=== PATIENT | female | born 1980 | race Caucasian/White ===

== ENCOUNTER → 2020-05-24 11:14 | Outpatient (BNVA) | payer OTHER, SELFPAY | PROVIDERS: Family Provider Family Medicine; PCP Family Medicine; Visit Provider Nurse Practitioner | DX: F41.1 Generalized anxiety disorder (principal); Z79.899 Other long term (current) drug therapy | CPT/HCPCS: 80061; 83036 ==

== ENCOUNTER → 2020-12-20 13:10 | Outpatient (BNVA) | payer OTHER, SELFPAY ==
[2020-05-29 10:14] VITALS: BP 128/86; BMI 20.1
== END ==
PROVIDERS: Family Provider Family Medicine; PCP Family Medicine; Visit Provider Nurse Practitioner
DX: F41.1 Generalized anxiety disorder (principal); Z79.899 Other long term (current) drug therapy
CPT/HCPCS: 80061; 83036

== ENCOUNTER → 2022-01-02 11:46 | Outpatient (BNVA) | payer OTHER, SELFPAY ==
[2020-12-21 13:28] VITALS: BP 129/91; BMI 19.4
== END ==
PROVIDERS: Family Provider Family Medicine; PCP Family Medicine; Visit Provider Nurse Practitioner
DX: F41.1 Generalized anxiety disorder (principal); Z79.899 Other long term (current) drug therapy
CPT/HCPCS: 80061; 83036

== ENCOUNTER → 2022-12-11 11:42 | Outpatient (BNVA) | payer OTHER, SELFPAY ==
[2022-01-17 13:33] VITALS: BP 144/93
== END ==
PROVIDERS: Family Provider Family Medicine; PCP Family Medicine; Visit Provider Nurse Practitioner
DX: F90.0 Attention-deficit hyperactivity disorder, predominantly inattentive type (principal); F34.1 Dysthymic disorder; F41.1 Generalized anxiety disorder; Z79.899 Other long term (current) drug therapy
CPT/HCPCS: 80061; 83036

== ENCOUNTER 2023-07-23 14:31 | Outpatient (CLI) | payer SELFPAY ==
[2022-01-17 13:33] VITALS: BP 144/93
--- NOTE | 2023-07-23 14:41 | USCV_ITS ---
Shayna Brower Age: 42 Gender: F : 1980 Exam Date: 07/23/2023 14:52 Ordering Phys: Alberta Dhillon Technologist: RENAE [place]am [place] [facility] [place]: RLE PAIN, SWELLING, AND DISCOLORATION HISTORY: Lower extremity swelling. Lower extremity pain. PROCEDURES: Venous duplex imaging was performed in only the right lower extremity. The following venous structures were evaluated: common femoral vein, profunda vein, proximal portion of the greater saphenous vein, superficial femoral vein, and the popliteal vein. In addition, the posterior tibial and peroneal trunk were evaluated. Serial compression, augmentation maneuvers, and spectral Doppler flow evaluation were performed. FINDINGS: No evidence of DVT seen in any vessel visualized at this time. In Area of interest non-compressible varicose veins seen. Right GSV appears patent CONCLUSIONS No evidence of right lower extremity DVT. In area of interest, non compressible varicose veins visualized with superficial thrombus. Recommend correlation for thrombophlebitis Right GSV is patent Jacky Caban MD (Electronically Signed) Final Date: 23 July 2023 16:13 S
== END 2023-07-23 14:32 | disposition home or self-care (01) ==
LOC: RAD 14:31
PROVIDERS: Family Provider Family Medicine; PCP Family Medicine; Visit Provider Nurse Practitioner Family
DX: L53.9 Erythematous condition, unspecified (principal); R60.0 Localized edema; I83.91 Asymptomatic varicose veins of right lower extremity; I80.01 Phlebitis and thrombophlebitis of superficial vessels of right lower extremity
CPT/HCPCS: 93971

== ENCOUNTER → 2023-12-09 10:26 | Outpatient (BNVA) | payer OTHER, SELFPAY ==
[2022-01-17 13:33] VITALS: BP 144/93
== END ==
PROVIDERS: Family Provider Family Medicine; PCP Family Medicine; Visit Provider Nurse Practitioner
DX: Z79.899 Other long term (current) drug therapy (principal); F90.0 Attention-deficit hyperactivity disorder, predominantly inattentive type; F41.1 Generalized anxiety disorder; F34.1 Dysthymic disorder
CPT/HCPCS: 80061; 83036

== ENCOUNTER 2024-02-19 09:59 | Outpatient (CLI) | payer OTHER, SELFPAY ==
[2022-01-17 13:33] VITALS: BP 144/93
--- NOTE | 2024-02-19 10:13 | US_ITS ---
WS: [id number] US pelv w/transvag [id number] HISTORY: UTERINE MASS COMPARISON: 05/18/2008 Uterus: 12.4 cm x 10.5 cm x 8.0 cm. There is a large heterogeneous mass with dense shadowing centered throughout the uterus. The uterine contour is being distorted. This is consistent with a large fibroid or multiple fibroids replacing th e myometrium. Endometrium: The endometrium is not visualized as a separate structure. Right ovary: 2.2 cm x 1.9 cm x 1.4 cm. Normal size and vascularity, no cystic or solid masses. Left ovary: Not identified. No free fluid in the cul-de-sac. US/US pelv w/transvag [id number] IMPRESSION: 1. Markedly enlarged uterus consistent with a fibroid uterus. Very little norm al peripheral uterine tissue is identified. Recommend [employer] consultation. 2. Endometrium is not identified due to the large central mass. 3. Negative RIGHT ovary. 4. LEFT ovary not identified.
== END 2024-02-19 10:00 | disposition home or self-care (01) ==
LOC: RAD 10:00
PROVIDERS: PCP Family Medicine; Visit Provider Nurse Practitioner Family
DX: N85.8 Other specified noninflammatory disorders of uterus (principal)
CPT/HCPCS: 76830; 76856

== ENCOUNTER → 2024-03-15 13:45 | Outpatient (BNVA) | payer OTHER, SELFPAY ==
[2022-01-17 13:33] VITALS: BP 144/93
== END ==
PROVIDERS: PCP Family Medicine; Visit Provider Nurse Practitioner Family
DX: R39.9 Unspecified symptoms and signs involving the genitourinary system (principal); R30.0 Dysuria
CPT/HCPCS: 81000; 87077; 87086; 87184

== ENCOUNTER → 2024-03-25 10:58 | Outpatient (BNVA) | payer OTHER, SELFPAY ==
[2022-01-17 13:33] VITALS: BP 144/93
== END ==
PROVIDERS: PCP Family Medicine; Visit Provider Registered Nurse Neonatal Intensive Care
DX: R39.9 Unspecified symptoms and signs involving the genitourinary system (principal); N39.0 Urinary tract infection, site not specified
CPT/HCPCS: 81000; 87077; 87086; 87184

== ENCOUNTER 2024-05-19 09:33 | Day surgery (SDC) | payer OTHER, SELFPAY ==
[2022-01-17 13:33] VITALS: BP 144/93
[2024-05-19] VITALS (10 sets, daily range): BP systolic 116–154; BP diastolic 74–97; PULSE 67–96; RESP 12–22; TEMP 36.2–37.2; O2SAT 100; BMI 21.4
--- NOTE | 2024-05-19 04:18 | W.PM.OPSFHP ---
Same Day Surgery H&P Indication for Procedure/HPI DATE OF PROCEDURE: May 19, 2024 CHIEF COMPLAINT/INDICATIONFOR SURGICAL PROCEDURE: abnormal uterine bleeding abnormal pap PREOP DIAGNOSIS: abnormal uterine bleeding, abnormal pap PLANNED PROCEDURE: Operation Date: 05/19/24 11:10 Proposed Procedures p Hysteroscopy Hysteroscopy w/ Endometrial Sampling 30162, 79898,54912,N93.9, r87.619(Not Applicable) - Amilcar Mckeon MD s Poylpectomy(Not Applicable) - Amilcar Mckeon MD s Loop Electrosurgical Excision Procedure cervical excision(Not Applicable) - Amilcar Mckeon MD 43 y.o. with large uterine fibroid and h/o abnormal paps Medications/Allergies* Home Medications Medication Instructions Recorded Confirmed Type hydrochlorothiazide 12.5 mg tablet 12.5 mg PO QAM 10/05/19 05/18/24 History bupropion HCl 150 mg 24 hr tablet, 150 mg PO DAILY 05/18/24 05/18/24 History extended release Allergies/Adverse Reactions Allergy/AdvReac Type Severity Reaction Status Date / Time meperidine [From Demerol] Allergy Unknown Verified 03/25/24 10:55 Pertinent History/Comorbid Conditions* Medical History (Updated 03/20/24 @ 01:37 by Amilcar Mckeon MD) On combination antipsychotic drug therapy Psychiatric care Attention-deficit hyperactivity disorder, predominantly inattentive type Dysthymic disorder Generalized anxiety disorder Family History (Updated 03/01/24 @ 13:07 by Monie Brunson LPN) Diabetes Mother Heart disease Mother Grandmother Denies family history of complication Colon cancer Ovarian cancer Breast cancer Hypertension Uterine cancer Thyroid disease Stroke Social History Smoking and tobacco/nicotine status: never used tobacco/nicotine Pertinent Exam Findings alert, oriented x 3, clear to auscultation bilaterally and regular rate & rhythm Pertinent Data Pelvic sono 02-19-24 uterus 12.4 x 10.5 x 8 cm Large fibroid replacing the myometrium Endometrium not visualized Normal right ovary Left ovary not visualized Recommendations Surgery/Procedure today Coding Level of Care Code Acute Code for Chg Fwd Time Spent (min) 20
[2024-05-19 10:05] LABS: OR HCG Qualitative Urine Negative (Negative)
--- NOTE | 2024-05-19 10:05 | W.PM.OPSUD ---
Surgery/Procedure H&P Update DATE OF PROCEDURE: May 19, 2024 DATE H&P PERFORMED: 05/19/24 H&P UPDATE INFORMATION: I have reviewed H&P completed within last 30 days, I have examined patient prior to procedure and No changes to prior documentation PREOP DIAGNOSIS: abnormal uterine bleeding, uterine fibroid, abnormal pap PLANNED PROCEDURE: Operation Date: 05/19/24 11:10 Proposed Procedures p Hysteroscopy Hysteroscopy w/ Endometrial Sampling 24783, 46811,77046,N93.9, r87.619(Not Applicable) - Amilcar Mckeon MD s Poylpectomy(Not Applicable) - Amilcar Mckeon MD s Loop Electrosurgical Excision Procedure cervical excision(Not Applicable) - Amilcar Mckeon MD
--- NOTE | 2024-05-19 10:26 | ANES.PREANE2 ---
Pre-Anesthetic Assessment Height/Weight: Height 1.63 m Weight 56.699 kg Temp Pulse Resp BP Pulse Ox O2 Del Method 98.9 F 96 16 154/97 100 Room Air 05/19/24 09:53 05/19/24 09:53 05/19/24 09:53 05/19/24 09:53 05/19/24 09:53 05/19/24 09:55 Preop Diagnosis: abnormal uterine bleeding, uterine fibroid, abnormal pap Operation Date: 05/19/24 11:10 Proposed Procedures p Hysteroscopy Hysteroscopy w/ Endometrial Sampling 85520, 77732,60594,N93.9, r87.619(Not Applicable) - Amilcar Mckeon MD s Poylpectomy(Not Applicable) - Amilcar Mckeon MD s Loop Electrosurgical Excision Procedure cervical excision(Not Applicable) - Amilcar Mckeon MD Familial anesthetic complications: None Was Beta Melissa taken within 24 hours: N/A Was Clonidine taken within 24 hours: N/A Last intake: Intake Last Liquid Date 05/19/24 Last Liquid Time 07:00 Last Solid Date 05/18/24 Last Solid Time 21:30 Social No alcohol and No tobacco Exam alert, oriented x 3, clear to auscultation bilaterally and regular rate & rhythm Airway Mallampati: Class I Dentition: full Anesthetic Plan ASA status: 2 Anesthesia: General Risk of > 500 ml blood loss (7ml/kg in children): No Medications/Allergies Home Medications Medication Instructions Recorded Confirmed Last Taken Type hydrochlorothiazide 12.5 mg tablet 12.5 mg PO QAM 10/05/19 05/18/24 05/18/24 History bupropion HCl 300 mg 24 hr tablet, 300 mg PO QAM #30 tabs 03/07/24 05/18/24 05/18/24 Rx extended release (Wellbutrin XL) aripiprazole 5 mg tablet (Abilify) 5 mg PO QDAY #30 tabs 03/15/24 05/18/24 05/18/24 Rx bupropion HCl 150 mg 24 hr tablet, 150 mg PO DAILY 05/18/24 05/18/24 05/18/24 History extended release Allergies Allergy/AdvReac Type Severity Reaction Status Date / Time meperidine [From Demerol] Allergy Unknown Verified 05/19/24 09:52 [facility]LY [facility] Anesthesia Medical History On combination antipsychotic drug therapy Psychiatric care Attention-deficit hyperactivity disorder, predominantly inattentive type Dysthymic disorder Generalized anxiety disorder Family History Mother Heart disease Diabetes Grandmother Heart disease Denies family history of complication Colon cancer Ovarian cancer Breast cancer Hypertension Uterine cancer Thyroid disease Stroke Social History Smoking and tobacco/nicotine status: never used tobacco/nicotine Female Reproductive History Date of last menstrual period: 05/04/24 Data Anesthesia Cardiac Studies: No Data to Display
--- NOTE | 2024-05-19 11:10 | SUR.OPER ---
moncels [id number] exp-10/29/24 applied to cervix by Dr. Mckeon.
--- NOTE | 2024-05-19 12:25 | PM.OP ---
Operative Report Date of procedure: May 19, 2024 Pre-op diagnosis: abnormal uterine bleeding abnormal pap Post-op diagnosis: same Post-op findings: uterus sounded to 8 cm Endometrial cavity normal Minimal endometrial tissue No polyps or fibroids Procedure done: hysteroscopy Curettage of uterus Electrosurgical loop excision of the cervix Implants: none Specimens removed/disposition: endometrial curettings cervical tissue Surgeon: Amilcar Mckeon MD Anesthesia: MAC Estimated blood loss (mL): 5 Complications: none Findings: uterus sounded to 8 cm Endometrial cavity normal Minimal endometrial tissue No polyps or fibroids Condition: stable Disposition: PACU Brief History: 43 y.o. with abnormal uterine bleeding and abnormal pap Procedure: Informed consent signed. Patient was taken to the operating room. Anesthesia was induced. Patient was placed in dorsolithotomy position, prepped and draped for hysteroscopy. A bivalve speculum was placed in the vagina. The anterior lip of the cervix was grasped with a sharp-toothed tenaculum. The cervix was serially dilated with Hegar dilators. A hysteroscope was placed into the endometrial cavity. The endometrial cavity was seen to be normal. There were no polyps or fibroids. There was small amount of endometrial tissue. The hysteroscope was then removed. Endometrial curettage was done with a sharp curette. Endometrial tissue was sent to pathology. The cervix was then infiltrated at the cervicovaginal junction with 20 U of vasopressin to decrease bleeding. Electrosurgical loop excision of the cervix was done to a depth of approximately 5 mm. No bleeding was seen. Excellent hemostasis was noted. All instruments were then removed. The patient was placed supine, awakened, and taken to the recovery room. Postoperative condition: stable EBL: 5 cc Complications: none Sponge and instrument counts were correct x two
--- NOTE | 2024-05-19 12:45 | ANE.PACU2 ---
Inpatient post-anesthesia follow up: Airway intact: Yes Vital signs: Temperature 98.2 F Pulse Rate 77 Respiratory Rate 16 Blood Pressure 138/83 Pulse Oximetry 100 Oxygen Delivery Me thod Room Air Oxygen Flow Rate 6 Fraction of Inspir ed Oxygen Hydration adequate: Yes Nausea and vomiting: No Pain level: 1 Mental status: Baseline
== END 2024-05-19 12:45 | disposition home or self-care (01) ==
PROVIDERS: Anesthesiology; PCP Nurse Practitioner Family; Visit Provider Obstetrics & Gynecology
PROC: 0UJD8ZZ Inspection of Uterus and Cervix, Via Natural or Artificial Opening Endoscopic (ICD-10-PCS; CPT 58555; principal; 2024-05-19 11:00)
PROC: (CPT 57522; 2024-05-19 11:00)
PROC: 0UBC7ZZ Excision of Cervix, Via Natural or Artificial Opening (ICD-10-PCS; CPT 57522; 2024-05-19 11:00)
DX: N87.0 Mild cervical dysplasia (principal); F41.1 Generalized anxiety disorder
CPT/HCPCS: 57522; 58558; 81025; 88305; J1100; J1885; J2250; J2405; J2704; J3010

== ENCOUNTER → 2024-08-09 09:33 | Outpatient (BNVA) | payer OTHER, SELFPAY ==
[2022-01-17 13:33] VITALS: BP 144/93
== END ==
PROVIDERS: PCP Nurse Practitioner Family; Visit Provider Obstetrics & Gynecology
DX: N85.9 Noninflammatory disorder of uterus, unspecified (principal); D25.9 Leiomyoma of uterus, unspecified
CPT/HCPCS: 76830; 76856

== ENCOUNTER 2024-11-24 09:26 | Observation (INO) | payer OTHER, SELFPAY ==
[2022-01-17 13:33] VITALS: BP 144/93
--- NOTE | 2024-11-23 10:43 | P.ANESASSM_ITS ---
Pre-Anesthetic Assessment Height/Weight: Height 1.63 m Preop Diagnosis: uterine fibroids, menorrhagia Operation Date: 11/24/24 07:00 Proposed Procedures p Total Abdominal Hysterectomy 33685, D25.9(Not Applicable) - Amilcar Mckeon MD Familial anesthetic complications: None Was Beta Melissa taken within 24 hours: N/A Was Clonidine taken within 24 hours: N/A Last intake: > 8 hrs Social No alcohol and No tobacco Exam alert, oriented x 3, clear to auscultation bilaterally and regular rate & rhythm Airway Mallampati: Class I Dentition: full CV/HEM Hypertension Anesthetic Plan ASA status: 2 Anesthesia: General Risk of > 500 ml blood loss (7ml/kg in children): No Medications/Allergies Home Medications ?Medication ?Instructions ?Recorded ?Confirmed ?Last Taken ?Type hydrochlorothiazide 12.5 mg tablet 12.5 mg PO BID 09/0811/23/24 11/23/24 History norgestimate 0.18 mg/0.215 mg/0.25 1 tab PO DAILY 04/3011/23/24 11/23/24 History mg-ethinyl estradiol 25 mcg tablet (Tri-VyLibra Lo) bupropion HCl 300 mg 24 hr tablet, 300 mg PO QAM #30 t abs 09/16/24 11/23/24 11/23/24 Rx extended release (Wellbutrin XL) bupropion HCl 150 mg 24 hr tablet, 150 mg PO DAILY #30 tabs 10/17/24 11/23/24 11/23/24 Rx extended release aripiprazole 5 mg tablet (Abilify) 5 mg PO QPM 5 11/23/24 11/22/24 History Allergies Allergy/AdvReac Type Severity Reaction Status Date / Time meperidine (From Demerol) Allergy Unknown Verified 09/14/24 10:53 [facility] Anesthesia Medical History On combination antipsychotic drug therapy Psychiatric care Attention-deficit hyperactivity disorder, predominantly inattentive type Dysthymic disorder Generalized anxiety disorder Family History Mother Heart disease Diabetes Grandmother Heart disease Denies family history of complication Colon cancer Ovarian cancer Breast cancer Hypertension Uterine cancer Thyroid disease Stroke Social History Smoking and tobacco/nicotine status: never used tobacco/nicotine Female Reproductive History Date of last menstrual period: 11/09/24 Data Anesthesia Cardiac Studies: No Data to Display
[2024-11-23 10:46] LABS: Basophils # 0.1 10^3/uL (0.0-0.1); Basophils % 0.7 %; Eosinophils # 0.1 10^3/uL (0.0-0.8); Eosinophils % 0.9 %; Hematocrit 45.7 % (36-47); Lymphocytes # 2.1 10^3/uL (0.8-4.8); Lymphocytes % 28.6 %; Mean Corpuscular HGB Conc 34.6 g/dL (30-55); Mean Corpuscular Hemoglobin 30.3 pg (27-33); Mean Corpuscular Volume 87.5 fl (85-98); Mean Platelet Volume 9.7 fL (7.4-10.4); Monocytes # 0.5 10^3/uL (0.2-0.9); Monocytes % 6.5 %; Neutrophils # 4.68 10^3/uL (1.8-7.7); Nucleated Red Blood Cells % 0 %; Platelet Count 247 10^3/cmm (157-399); Red Blood Count 5.22 10^6/uL (3.85-5.65); Red Cell Distribution Width 12.6 % (12.1-15.1); White Blood Count 7.42 10^3/uL (3.29-11.43)
[2024-11-23 11:11] LABS: Anion Gap 16.1 (5-19); Blood Urea Nitrogen 17 mg/dL (6-20); Calcium 9.1 mg/dL (8.5-10.5); Carbon Dioxide 26 mmol/L (22-29); Chloride 94 mmol/L (98-107); Glucose 94 mg/dL (65-115); Osmolality Calculated 277 mOsm/kg (285-295); Potassium 3.1 mmol/L (3.5-5.1); Sodium 133 mmol/L (136-145)
[2024-11-24] VITALS (16 sets, daily range): BP systolic 97–140; BP diastolic 59–95; PULSE 75–105; RESP 15–18; TEMP 36.3–36.9; O2SAT 95–100; BMI 20.5
--- NOTE | 2024-11-24 02:19 | PM.OBGYHP ---
Providers/Chief Complaint Admitting Physician: Amilcar Mckeon MD Primary DIRECTOR INTEGRATED: Amilcar Mckeon MD Primary Care Provider: lAberta Dhillon Chief Complaint: uterine fibroids HPI DIRECTOR INTEGRATED History of Present Illness Shayna Brower is a 44 year old female with uterine fibroids now scheduled for total abdominal hysterectomy Present Details Date of Last Menstrual Period: 11/09/24 Calculated Date of Delivery: 08/16/25 Gestational Age Based on Last Menstrual Period: 2 Medications/Allergies Home Medications ?Medication ?Instructions ?Recorded ?Confirmed ?Last Taken ?Type hydrochlorothiazide 12.5 mg tablet 12.5 mg PO BID 10/05/19 11/23/24 11/23/24 History norgestimate 0.18 mg/0.215 mg/0.25 1 tab PO DAILY 06/14/24 11/23/24 11/23/24 History mg-ethinyl estradiol 25 mcg tablet (Tri-VyLibra Lo) bupropion HCl 300 mg 24 hr tablet, 300 mg PO QAM #30 tabs 09/16/24 11/23/24 11/23/24 Rx extended release (Wellbutrin XL) bupropion HCl 150 mg 24 hr tablet, 150 mg PO DAILY #30 tabs 10/17/24 11/23/24 11/23/24 Rx extended release aripiprazole 5 mg tablet (Abilify) 5 mg PO QPM 11/23/24 11/23/24 11/22/24 History Allergies Allergy/AdvReac Type Severity Reaction Status Date / Time meperidine (From Demerol) Allergy Unknown Verified 09/14/24 10:53 PFS DIRECTOR INTEGRATED PFSH: Medical History On combination antipsychotic drug therapy Psychiatric care Attention-deficit hyperactivity disorder, predominantly inattentive type Dysthymic disorder Generalized anxiety disorder Family History Mother Heart disease Diabetes Grandmother Heart disease Denies family history of complication Colon cancer Ovarian cancer Breast cancer Hypertension Uterine cancer Thyroid disease Stroke Social History Smoking and tobacco/nicotine status: never used tobacco/nicotine History History History 3 Term 2 0 Miscarriages/Ectopic 1 Living Children 2 Physical Exam Const: COMMON NORMALS: no acute distress, average body habitus, patient oriented x3, healthy appearing and alert Resp: COMMON NORMALS: normal respiratory effort and clear to auscultation bilaterally Cardio: COMMON NORMALS: regular rate and regular rhythm GI: COMMON NORMALS: Normal to inspection, nondistended, normoactive bowel sounds present, Soft to palpation and non-tender Data 11/23/24 10:30 11/23/24 10:30 Other data: Pelvic sono 02-19-24 uterus 12.4 x 10.5 x 8 cm Large fibroid replacing the myometrium Endometrium not visualized Normal right ovary Left ovary not visualized Results Labs OB ([facility]): Blood Type O Positive 11/23/24 Antibody Screen Negative 11/23/24 Hct 45.7 % (36-47) 11/23/24 Hgb 15.80 g/dL (11.27-16.99) 11/23/24 Rho(D) Type Rh positive 11/23/24 Plt Count 247 10^3/cmm (157-399) 11/23/24 Hemoglobin A1c 4.7 % (4.0-6.0) 12/09/23 Micro Urine Specimen 03/25/24 A&P Assessment and plan (1) Uterine fibroid: Plan total abdominal hysterectomy Procedure and risks explained Risks include, but not limited to, infection; bleeding; injury to internal organs, such as bladder, bowel, blood vessels; anesthesia; blood transfusions Patient understands and wants to proceed PDMP PDMP Reviewed: Not Reviewed Attestations Medical Necessity Statement*: patient with uterine fibroids, now scheduled for hysterectomy Coding Level of Care Code Acute Code for Chg Fwd Diagnoses Uterine fibroid D25.9 Time Spent (min) 30
[2024-11-24] MEDS: sodium chloride 0.9% 1,000 ML 30 ML IV (06:28)
[2024-11-24 06:35] LABS: OR HCG Qualitative Urine Negative (Negative)
--- NOTE | 2024-11-24 06:39 | ANES.PREANE2 ---
Pre-Anesthetic Assessment Height/Weight: Height 5 ft 4 in Weight 120 lb Temp Pulse Resp BP Pulse Ox O2 Del Method 98.2 F 91 18 140/95 99 Room Air 11/24/24 06:25 11/24/24 06:25 11/24/24 06:25 11/24/24 06:25 11/24/24 06:25 11/24/24 06:36 Preop Diagnosis: uterine fibroids, menorrhagia Operation Date: 11/24/24 07:00 Proposed Procedures p Total Abdominal Hysterectomy 51392, D25.9(Not Applicable) - Amilcar Mckeon MD Social No alcohol and No tobacco Exam alert, oriented x 3, clear to auscultation bilaterally and regular rate & rhythm Airway Submandibular: within normal limits Cervical ROM: within normal limits Mallampati: Class II Dentition: full Anesthetic Plan ASA status: 2 Anesthesia: General Other: No prior issues with anesthesia NPO since yesterday evening History of hypertension, controlled with hydrochlorothiazide. Preop BP 140/95 Patient has ADHD and anxiety Labs reviewed 11/23/2024 and acceptable for procedure. NA 133, K+ 3.1 at that time Will perform type and screen Plan for general anesthesia Medications/Allergies Home Medications ?Medication ?Instructions ?Recorded ?Confirmed ?Last Taken ?Type hydrochlorothiazide 12.5 mg tablet 12.5 mg PO BID 10/05/19 11/23/24 11/23/24 History norgestimate 0.18 mg/0.215 mg/0.25 1 tab PO DAILY 06/14/24 11/23/24 11/23/24 History mg-ethinyl estradiol 25 mcg tablet (Tri-VyLibra Lo) bupropion HCl 300 mg 24 hr tablet, 300 mg PO QAM #30 tabs 09/16/24 11/23/24 11/23/24 Rx extended release (Wellbutrin XL) bupropion HCl 150 mg 24 hr tablet, 150 mg PO DAILY #30 tabs 10/17/24 11/23/24 11/23/24 Rx extended release aripiprazole 5 mg tablet (Abilify) 5 mg PO QPM 11/23/24 11/23/24 11/22/24 History Allergies Allergy/AdvReac Type Severity Reaction Status Date / Time meperidine (From Demerol) Allergy Unknown Verified 09/14/24 10:53 Current Medications Generic Name Dose Route Start Last Admin Trade Name Hugh PRN Reason Stop Dose Admin Sodium Chloride 1,000 mls @ 30 mls/hr 11/24/24 06:15 11/24/24 06:28 Sodium Chloride 0.9% IV 11/25/24 06:14 30 mls/hr .Q24H NAHOMY Administration PFSH Anesthesia Medical History On combination antipsychotic drug therapy Psychiatric care Attention-deficit hyperactivity disorder, predominantly inattentive type Dysthymic disorder Generalized anxiety disorder Family History Mother Heart disease Diabetes Grandmother Heart disease Denies family history of complication Colon cancer Ovarian cancer Breast cancer Hypertension Uterine cancer Thyroid disease Stroke Social History Smoking and tobacco/nicotine status: never used tobacco/nicotine Female Reproductive History Date of last menstrual period: 11/09/24 Data Anesthesia 11/23/24 10:30 11/23/24 10:30 Short CBC 11/23/24 Range/Units 10:30 WBC 7.42 (3.29-11.43) 10^3/uL Hgb 15.80 (11.27-16.99) g/dL Hct 45.7 (36-47) % MCV 87.5 (85-98) fl Plt Count 247 (157-399) 10^3/cmm Neut % (Auto) 63.0 % Neut # (Auto) 4.68 (1.8-7.7) 10^3/uL BMP 11/23/24 10:30 Sodium 133 L Potassium 3.1 L Chloride 94 L Carbon Dioxide 26 BUN 17 Creatinine 0.9 Glucose 94 Calcium 9.1 Blood Bank 11/23/24 10:30 Blood Type O Positive Rho(D) Type Rh positive Antibody Screen Negative Cardiac Studies: No Data to Display
--- NOTE | 2024-11-24 06:50 | W.PM.OPSUD ---
Surgery/Procedure H&P Update DATE OF PROCEDURE: November 24, 2024 DATE H&P PERFORMED: 11/23/24 H&P UPDATE INFORMATION: I have reviewed H&P completed within last 30 days, I have examined patient prior to procedure and No changes to prior documentation PREOP DIAGNOSIS: uterine fibroids, menorrhagia PLANNED PROCEDURE: Operation Date: 11/24/24 07:00 Proposed Procedures p Total Abdominal Hysterectomy 86909, D25.9(Not Applicable) - Amilcar Mckeon MD
[2024-11-24] MEDS: ceFAZolin 2,000 mg SDV 2000 MG IVP (07:01)
[2024-11-24] MEDS: BUPivacaine 0.5% INJ 30 mL 8 ML INJECTION (09:11)
[2024-11-24] MEDS: BUPivacaine liposome 13.3 mg/mL SDV 20 mL 67 MG INFILTRATI (09:14)
--- NOTE | 2024-11-24 09:45 | PM.OP ---
Operative Report Date of procedure: November 24, 2024 Pre-op diagnosis: uterine fibroids Post-op diagnosis: same Post-op findings: uterus markedly enlarged with fibroids, approximately 20-wk size Normal fallopian tubes Normal ovaries Normal and intact bladder Procedure done: Total abdominal hysterectomy Specimens removed/disposition: uterus and cervix, sent to pathology Surgeon: Amilcar Mckeon MD Anesthesia: General Estimated blood loss (mL): 350 Complications: none Findings: uterus markedly enlarged with fibroids, approximately 20-wk size Normal fallopian tubes Normal ovaries Normal and intact bladder Condition: stable Disposition: PACU Brief History: 44 y.o. with large uterine fibroid identified on pelvic sono Procedure: Informed consent obtained. The patient was taken to the operating room and placed supine on the table. General endotracheal anesthesia was induced. The abdomen was prepped and draped in the usual sterile fashion. A bedolla catheter was placed which drained clear urine. A pfannenstiel incision was made and carried down through skin and subcutaneous tissue and fascia. The fascia was sharply incised. The rectus muscles were and the abdomen was entered bluntly in the midline. The pelvic contents were visualized and examined. An Maikel-O retractor was placed. The bowels were packed out of the way. The uterus was noted to be uniformly markedly enlarged, approximately 20-week size. The Ligasure device was used throughout for vessel sealing and cutting. The hysterectomy was begun by dividing and ligating the round ligaments bilaterally. The infundibulopelvic ligaments were divided and skeletonized bilaterally. The ovaries were preserved by dividing the uterus from the uteroovarian ligaments. The vesicouterine peritoneal fold was incised in a transverse curvilinear fashion and sharply dissected downward mobilizing the bladder off the lower uterine segment. The uterine vessels were skeletonized and bilaterally divided and ligated. The procedure was carried down on both sides of the uterus until the cardinal uterosacral ligament was reached. The cervix was then incised. The vaginal cuff was identified and the mucosa was from the cervix. In this fashion, the uterus was removed leaving the vaginal cuff. The vaginal cuff was identified and the mucosa was sewn with O-Vicryl. The pelvis was inspected and irrigated. There was no bleeding. The abdominal packs were removed as was the retractor. The fascia was then closed with a continuous stitch of O-Vicryl. The subcutaneous tissue was irrigated and inspected for hemostasis. The skin was then reapproximated using Insorb absorbable subcuticular skin jourdan. The patient was then placed supine, extubated, and taken to the recovery room. Postoperative condition: stable EBL: 350 cc Complications: none Sponge, needle, instruments counts were correct x two.
--- NOTE | 2024-11-24 09:51 | ANE.PACU2 ---
Inpatient post-anesthesia follow up: Airway intact: Yes Vital signs: Temperature 98.2 F Pulse Rate 84 Respiratory Rate 16 Blood Pressure 99/59 Pulse Oximetry 97 Oxygen Delivery Me thod Room Air Oxygen Flow Rate Fraction of Inspir ed Oxygen Hydration adequate: Yes Nausea and vomiting: No Pain level: 1 Mental status: Baseline
[2024-11-24] MEDS: ketorolac 30 mg/mL INJ IVP ×3 (10:14→22:30)
[2024-11-25 04:55] VITALS: BP 99/59; PULSE 84; RESP 16; TEMP 36.8; O2SAT 97
[2024-11-25] MEDS: ketorolac 30 mg/mL INJ IVP (04:56)
[2024-11-25 05:18] LABS: Hematocrit 32.6 % (36-47); Mean Corpuscular HGB Conc 33.7 g/dL (30-55); Mean Corpuscular Hemoglobin 30.3 pg (27-33); Mean Corpuscular Volume 89.8 fl (85-98); Mean Platelet Volume 10.3 fL (7.4-10.4); Platelet Count 163 10^3/cmm (157-399); Red Blood Count 3.63 10^6/uL (3.85-5.65); Red Cell Distribution Width 12.8 % (12.1-15.1); White Blood Count 9.93 10^3/uL (3.29-11.43)
[2024-11-25] MEDS: ibuprofen 800 mg tablet PO (09:13)
[2024-11-25 10:00] VITALS: BP 105/71; PULSE 82; RESP 16; TEMP 36.3; O2SAT 98
--- NOTE | 2024-11-25 12:50 | PM.OBGYDC ---
Discharge Providers OFFICE MACHINE INSTALLER Date of Admission: 11/24/24 09:26 Date of Discharge: 11/25/24 Attending Provider at Admission: Amilcar Mckeon MD Attending Provider at Discharge: Amilcar Mckeon MD Consults: none Primary OFFICE MACHINE INSTALLER: Amilcar Mckeon MD Primary Care Provider: Alberta Dhillon Diagnoses at Discharge Discharge Diagnosis (1) Uterine fibroid: Details from hospital stay: 43 y.o. with large uterine fibroids admitted for hysterectomy total abdominal hysterectomy was performed without any complications A markedly enlarged uterus was seen at operation patient did well postoperatively had postoperative pain that was controlled with pain medications was afebrile was eating and voiding without any difficulties patient was discharged to home on the first postoperative day Status: Inactive Reason for Visit Reason for Visit: uterine fibroids Brief History: 43 y.o. with large uterine fibroids admitted for hysterectomy Hospital Course Hospital Course 43 y.o. with large uterine fibroids admitted for hysterectomy total abdominal hysterectomy was performed without any complications A markedly enlarged uterus was seen at operation patient did well postoperatively had postoperative pain that was controlled with pain medications was afebrile was eating and voiding without any difficulties patient was discharged to home on the first postoperative day Physical Exam Narrative: VS afebrile, normal General comfortable, awake, alert Lungs: clear Cor: RRR Abd: soft, nondistended Mild incisional tenderness Wound clean and dry Ext: normal Urinary Catheter Management: Oliver: Cath Placed During This Visit: yes, but has since been removed by the nurse Reason for Continuing Indwelling Catheter: Decision to DC Catheter Urinary Catheter Date of Insertion: 11/24/24 Urinary Catheter Time of Insertion: 07:15 Date Urinary Catheter Removed: 11/25/24 Time Urinary Catheter Discontinued: 05:10 History History History 3 Term 2 0 Miscarriages/Ectopic 1 Living Children 2 Discharge Data Studies Completed and Pending Completed Studies During Hospitalization Category Date Time Status Pathology: Surgical [PTH] Routine Pth 11/24/24 08:50 Completed Laboratory Results WBC 9.93 10^3/uL (3.29-11.43) 11/25/24 04:59 RBC 3.63 10^6/uL (3.85-5.65) L 11/25/24 04:59 Hgb 11.00 g/dL (11.27-16.99) L 11/25/24 04:59 Hct 32.6 % (36-47) L 11/25/24 04:59 MCV 89.8 fl (85-98) 11/25/24 04:59 MCH 30.3 pg (27-33) 11/25/24 04:59 MCHC 33.7 g/dL (30-55) 11/25/24 04:59 RDW 12.8 % (12.1-15.1) 11/25/24 04:59 Plt Count 163 10^3/cmm (157-399) 11/25/24 04:59 MPV 10.3 fL (7.4-10.4) 11/25/24 04:59 Neut % (Auto) 63.0 % 11/23/24 10:30 Lymph % (Auto) 28.6 % 11/23/24 10:30 [place] % (Auto) 6.5 % 11/23/24 10:30 Eos % (Auto) 0.9 % 11/23/24 10:30 Baso % (Auto) 0.7 % 11/23/24 10:30 Neut # (Auto) 4.68 10^3/uL (1.8-7.7) 11/23/24 10:30 Lymph # (Auto) 2.1 10^3/uL (0.8-4.8) 11/23/24 10:30 [place] # (Auto) 0.5 10^3/uL (0.2-0.9) 11/23/24 10:30 Eos # (Auto) 0.1 10^3/uL (0.0-0.8) 11/23/24 10:30 Baso # (Auto) 0.1 10^3/uL (0.0-0.1) 11/23/24 10:30 Nucleated RBC % (auto) 0 % 11/23/24 10:30 Nucleated RBCs # 0.0 /100WBC 11/23/24 10:30 Sodium 133 mmol/L (136-145) L 11/23/24 10:30 Potassium 3.1 mmol/L (3.5-5.1) L 11/23/24 10:30 Chloride 94 mmol/L (98-107) L 11/23/24 10:30 Carbon Dioxide 26 mmol/L (22-29) 11/23/24 10:30 Anion Gap 16.1 (5-19) 11/23/24 10:30 BUN 17 mg/dL (6-20) 11/23/24 10:30 Creatinine 0.9 mg/dL (0.5-0.9) 11/23/24 10:30 GFR Calculation 68.0 mL/min (90-130) L 11/23/24 10:30 Glucose 94 mg/dL (65-115) 11/23/24 10:30 Calculated Osmolality 277 mOsm/kg (285-295) L 11/23/24 10:30 Calcium 9.1 mg/dL (8.5-10.5) 11/23/24 10:30 Urine HCG, Qual Negative (Negative) 11/24/24 06:32 Blood Type O Positive 11/23/24 10:30 Rho(D) Type Rh positive 11/23/24 10:30 Antibody Screen Negative 11/23/24 10:30 Procedures Performed total abdominal hysterectomy Vitals Last Vital Signs Temp 97.3 F L 11/25/24 10:00 Pulse 82 11/25/24 10:00 Resp 16 11/25/24 10:00 BP 105/71 11/25/24 10:00 Pulse Ox 98 11/25/24 10:00 O2 Del Method Room Air 11/25/24 04:55 Results Labs OB ([facility]): Blood Type O Positive 11/23/24 Antibody Screen Negative 11/23/24 Hct 32.6 % (36-47) L 11/25/24 Hgb 11.00 g/dL (11.27-16.99) L 11/25/24 Rho(D) Type Rh positive 11/23/24 Plt Count 163 10^3/cmm (157-399) 11/25/24 Hemoglobin A1c 4.7 % (4.0-6.0) 12/09/23 Micro Urine Specimen 03/25/24 Discharge Plan Discharge Patient Disposition: Home Condition: Stable Prescriptions: New oxycodone-acetaminophen [Percocet] 5-325 mg tablet 1 tab PO Q8H PRN (Reason: pain) Qty: 30 0RF Continued hydrochlorothiazide 12.5 mg tablet 12.5 mg PO BID bupropion HCl [Wellbutrin XL] 300 mg tablet extended release 24 hr 300 mg PO QAM Qty: 30 2RF bupropion HCl 150 mg tablet extended release 24 hr 150 mg PO DAILY Qty: 30 2RF Rx Instructions: TAKE 1 TABLET BY MOUTH EVERY MORNING aripiprazole [Abilify] 5 mg tablet 5 mg PO QPM Discharge Orders: Discharge Order (Routine); Ordered 11/25/24 Ordered By: Amilcar Mckeon Referrals: Chaya Barfield, EMPLOYMENT COORDINATOR [Nurse Practitioner] - 12/01/24 1:15 pm Discharge Diet: Usual diet Discharge Activity: Limit activity as instructed Patient Instructions: Oxycodone/Acetaminophen (By mouth), Acute Wound Care (DC), Opioid Safety (DC), Hysterectomy (DC), OB Abdominal Surgery - [facility], OB Discharge Report, OB Food/Drug Interaction Guide, Opioid Safety, Post Anesthesia Care Activity Restrictions/Additional Instructions: no intercourse x eight weeks no heavy lifting, more than 20 lbs, x eight weeks return in one week Discharge Attestations OFFICE MACHINE INSTALLER Time Spent in Discharge Care*: less than 30 min Coding Level of Care Code Acute Code for Chg Fwd Diagnoses Uterine fibroid D25.9
== END 2024-11-25 10:00 | disposition home or self-care (01) ==
LOC: OBGYN 09:28
PROVIDERS: Anesthesiology; Student in an Organized Health Care Education/Training Program; Admitting Provider Obstetrics & Gynecology; PCP Nurse Practitioner Family; Visit Provider Obstetrics & Gynecology
PROC: 0UT90ZZ Resection of Uterus, Open Approach (ICD-10-PCS; CPT 58150; principal; 2024-11-24 07:00)
DX: D25.9 Leiomyoma of uterus, unspecified (principal); N92.0 Excessive and frequent menstruation with regular cycle; Z86.79 Personal history of other diseases of the circulatory system; N72 Inflammatory disease of cervix uteri; I10 Essential (primary) hypertension
CPT/HCPCS: 58150; 36415; 51702; 80048; 81025; 85025; 85027; 86850; 86900; 88307; C9290; G0378; J0131; J0690; J1100; J1171; J1200; J1885; J2250; J2371; J2405; J2704; J3010; J3490; J7030; J9999

== ENCOUNTER → 2025-01-03 11:34 | Outpatient (BNVA) | payer OTHER, SELFPAY ==
[2022-01-17 13:33] VITALS: BP 144/93
== END ==
PROVIDERS: PCP Nurse Practitioner Family; Visit Provider Nurse Practitioner
DX: Z79.899 Other long term (current) drug therapy (principal)
CPT/HCPCS: 80061; 83036

== ENCOUNTER 2025-06-29 14:05 | Emergency (ER) | payer OTHER, SELFPAY ==
[2022-01-17 13:33] VITALS: BP 144/93
[2025-06-29 14:37] VITALS: BP 149/99; PULSE 83; RESP 17; TEMP 36.9; O2SAT 100; BMI 21.4
--- NOTE | 2025-06-29 15:02 | ED_ITS ---
HPI - Animal Bite General: Chief Complaint: Animal Bite Stated Complaint: R hip bit by a dog Time Seen by Provider: 06/29/25 14:26 History of Present Illness: 44-year-old female presents to the [facility] ency room she was bit by dog while jogging. She was bitten on the right hip and on the left forearm skin was broken on her right hip not on her left forearm. No other injuries. Patient is unsure of her last tetanus shot. The dog's have been known to roam the neighborhood she believes they are someone's neighborhood pet they are unable to verify rabies vaccination for the dogs. She wishes to proceed with rabies vaccination here. Related Data Home Medications ?Medication ?Instructions ?Recorded ?Confirmed hydrochlorothiazide 12.5 mg tablet 12.5 mg PO BID 09/0806/22/25 Previous Rx's ?Medication ?Instructions ?Recorded aripiprazole 5 mg tablet (Abilify) 5 mg PO QPM #30 tab s 06/19/25 bupropion HCl 300 mg 24 hr tablet, 300 mg PO QAM #30 t abs 06/19/25 extended release (Wellbutrin XL) bupropion HCl 150 mg 24 hr tablet, 150 mg PO DAILY #30 tabs 06/22/25 extended release amoxicillin 875 mg-potassium 1 tab PO BID #10 tabs clavulanate 125 mg tablet Allergies Allergy/AdvReac Type Severity Reaction Status Date / Time meperidine (From Demerol) Allergy Unknown Verified 06/22/25 10:38 [facility] ED PFSH: Medical History Uterine fibroid On combination antipsychotic drug therapy Psychiatric care Attention-deficit hyperactivity disorder, predominantly inattentive type Dysthymic disorder Generalized anxiety disorder Surgical History H/O cone biopsy of cervix Path report: [id number] H/O dilation and curettage AUB Status post hysteroscopy AUB S/P total abdominal hysterectomy Total abdominal hyst for enlarged uterus with fibroids approx 20 wk size Family History Mother Heart disease Diabetes Grandmother Heart disease Denies family history of complication Colon cancer Ovarian cancer Breast cancer Hypertension Uterine cancer Thyroid disease Stroke Social History Smoking and tobacco/nicotine status: never used tobacco/nicotine Physical Exam Skin: OTHER: Superficial bite guevara and puncture wound on the right hip and calf. No full- thickness lacerations no gaping wounds no sign of infection at this time Course Vital Signs: Vital signs: Vital Signs Temperature 98.4 F 06/29/25 14:37 Pulse Rate 77 06/29/25 15:24 Respiratory Rate 17 06/29/25 14:37 Blood Pressure 122/88 06/29/25 15:24 Pulse Oximetry 98 06/29/25 15:24 Oxygen Delivery Me thod Room Air 06/29/25 14:37 MDM - Animal Bite Medical Decision Making Dogs rabies status unknown. Tetanus updated initiate rabies vaccine. Also started Augmentin for 7 days. Reviewed recommendations as far as rabies vaccine with the patient shares department is still working to find the owners if they are able to find the owners and they can verify that the dogs have been vaccinated she could stop it back today she did if the dogs can be monitored for 10 days that she can hold off on further vaccinations. Ultimately after long discussion she opted to go ahead and start the vaccinations and complete course in the last the dogs are found to be verified as having been vaccinated. Return if she develops signs of infection. No radiology studies performed this visit Discharge Plan Discharge Patient Disposition: Home Clinical Impression: Need for rabies vaccination Dog bite Qualifiers: Encounter type: initial encounter Qualified Code(s): W54.0XXA - Bitten by dog, initial encounter Condition: Stable Prescriptions: New amoxicillin-pot clavulanate 875-125 mg tablet 1 tab PO BID Qty: 10 0RF No Action hydrochlorothiazide 12.5 mg tablet 12.5 mg PO BID bupropion HCl 150 mg tablet extended release 24 hr 150 mg PO DAILY Qty: 30 2RF Rx Instructions: TAKE 1 TABLET BY MOUTH EVERY MORNING bupropion HCl [Wellbutrin XL] 300 mg tablet extended release 24 hr 300 mg PO QAM Qty: 30 2RF aripiprazole [Abilify] 5 mg tablet 5 mg PO QPM Qty: 30 2RF Discharge Orders: Discharge ED (Routine); Ordered 06/29/25 Ordered By: French Medley Referrals: Alejo,Alberta R, PATIENT ACCOUNTING REPRESENTATIVE [Primary Care Provider, Nurse Practitioner] Discharge Diet: Usual diet Discharge Activity: Resume usual activity Patient Instructions: Opioid Safety, Pain Management, Patient Portal & Otf Instructions Activity Restrictions/Additional Instructions: Thank you for choosing [facility] for your healthcare needs today. It is very important that you follow up as instructed or that you return to the Emergency Department should you have concerns or if your condition changes or worsens in any way. Emergency department visits are focused on emergent conditions, in some cases you may require further evaluation on an outpatient basis. You were seen in the emergency room after dog bite. Recommend prophylactic oral antibiotics 1 pill twice a day for 5 days. You are also given a tetanus update and initiated your rabies vaccination complete rabies vaccination as per the schedule you were given. If there is any signs of infection at the bite site return to the emergency room or your primary care doctor. (Please note that included in your discharge packet is information concerning opioid safety and pain management. This information is given to all patients were discharged from the ER regardless of their discharge diagnosis or the medicines they usually take or are prescribed.) Print Language: Nepali Coding Level of Care Code ED Highway Design Engineer for Refugio Anderson
[2025-06-29] MEDS: tetanus-dipt-pertussis 0.5 mL SDV IM (15:11)
[2025-06-29] MEDS: rabies vaccine 2.5 unit SDV IM (15:13)
[2025-06-29] MEDS: rabies IG 300 unit/mL SDV 1 mL 1140 UNIT IM (15:20)
[2025-06-29 15:24] VITALS: BP 122/88; PULSE 77; O2SAT 98
== END 2025-06-29 15:27 | disposition home or self-care (01) ==
PROVIDERS: Emergency Provider Family Medicine; PCP Nurse Practitioner Family
DX: S71.051A Open bite, right hip, initial encounter (principal); W54.0XXA Bitten by dog, initial encounter; Z20.3 Contact with and (suspected) exposure to rabies; Z29.14 Encounter for prophylactic rabies immune globulin
CPT/HCPCS: 90375; 90675; 90715; 99283

== ENCOUNTER 2025-07-06 10:15 | Oncology outpatient (recurring) (ONCR) | payer OTHER, SELFPAY ==
[2022-01-17 13:33] VITALS: BP 144/93
[2025-07-03] MEDS: rabies vaccine 2.5 unit SDV IM (10:28)
[2025-07-06] MEDS: rabies vaccine 2.5 unit SDV IM (10:51)
== END 2025-07-07 23:59 | disposition home or self-care (01) ==
PROVIDERS: PCP Nurse Practitioner Family; Visit Provider Family Medicine
DX: Z23 Encounter for immunization; Z20.3 Contact with and (suspected) exposure to rabies; W54.0XXA Bitten by dog, initial encounter; Z53.9 Procedure and treatment not carried out, unspecified reason
CPT/HCPCS: 90471; 90675